=== PATIENT | female | born 1950 | race Two or more races ===

== ENCOUNTER 2021-07-12 10:13 | Outpatient (CLI) | payer OTHER | END 2021-07-12 10:20 | disposition home or self-care (01) | LOC: RAD 10:13 | PROVIDERS: ATTEND Internal Medicine Rheumatology | DX: M15.8 Other polyosteoarthritis (principal) ==

== ENCOUNTER → 2021-10-03 | Outpatient (CLI) | payer OTHER | END | disposition home or self-care (01) | LOC: NUCLEAR 13:15 | PROVIDERS: ATTEND Internal Medicine Rheumatology | DX: M81.0 Age-related osteoporosis without current pathological fracture (principal) ==

== ENCOUNTER 2022-09-11 14:17 | Outpatient (CLI) | payer OTHER | END 2022-09-11 14:25 | disposition home or self-care (01) | LOC: MAMO-SONO 14:17 | PROVIDERS: ATTEND Obstetrics & Gynecology | DX: Z12.31 Encounter for screening mammogram for malignant neoplasm of breast (principal) ==

== ENCOUNTER 2022-09-26 14:21 | Outpatient (CLI) | payer OTHER | END 2022-09-26 14:23 | disposition home or self-care (01) | LOC: MAMO-SONO 14:21 | PROVIDERS: ATTEND Obstetrics & Gynecology | DX: N63.24 Unspecified lump in the left breast, lower inner quadrant (principal) ==

== ENCOUNTER 2023-10-30 14:20 | Outpatient (CLI) | payer OTHER | END 2023-10-30 14:23 | disposition home or self-care (01) | LOC: MAMO-SONO 14:20 → SONOGRAMA 14:20 | PROVIDERS: ATTEND Obstetrics & Gynecology | DX: N60.22 Fibroadenosis of left breast (principal); N60.21 Fibroadenosis of right breast; Z12.31 Encounter for screening mammogram for malignant neoplasm of breast ==

== ENCOUNTER 2023-10-30 14:29 | Outpatient (CLI) | payer OTHER | END 2023-10-30 14:30 | disposition home or self-care (01) | LOC: NUCLEAR 14:29 | PROVIDERS: ATTEND Obstetrics & Gynecology | DX: M81.0 Age-related osteoporosis without current pathological fracture (principal) ==